=== PATIENT | female | born 1995 | race African-American/Black ===

== ENCOUNTER 2022-02-28 15:11 | Emergency (ER) | payer OTHER, SELFPAY ==
--- NOTE | ~2022-02-28 | XR_ITS ---
EXAMINATION: XR CHEST CLINICAL INFORMATION: Covid positive COMPARISON: None TECHNIQUE: Frontal view of the chest was obtained. FINDINGS: No significant abnormality is noted involving the heart, lungs, mediastinum, bony thorax or soft tissues. XR/XR chest 1V IMPRESSION: Unremarkable examination.
[2022-02-28 16:01] VITALS: BP 115/73; PULSE 130; RESP 18; TEMP 37.7; O2SAT 98; BMI 32.1
[2022-02-28 16:14] LABS: MANUAL DIFF FLAG NO
[2022-02-28 16:16] LABS: Basophils Percent Auto 0.2 % (0-2); Eosinophils Absolute Auto 0.1 X10*3/uL (0.0-0.4); Hemoglobin 13.9 g/dl (12.0-16.0); Imm Gran Abs Auto 0.02 X10*3/uL (0.00-0.03); Imm Gran Pct Auto 0.3 % (0.0-0.4); Lymphocytes Absolute Auto 1.6 X10*3/uL (1.2-4.9); Lymphocytes Percent Auto 27.8 % (20-40); Mean Corpuscular HGB Conc 33.1 g/dl (31.0-35.0); Mean Corpuscular Hemoglobin 30.2 pg (27.0-33.0); Mean Corpuscular Volume 91.1 fL (80.0-98.0); Mean Platelet Volume 10.8 fL (9.4-12.3); Monocytes Percent Auto 17.7 % (2-11); Neutrophils Absolute Auto 3.1 x10*3/uL (2.0-8.3); Platelet Count 299 X10*3/uL (160-400); Red Blood Count 4.61 X10*6/uL (4.20-5.50); Red Cell Distribution Width 12.5 % (11.0-16.0); White Blood Count 5.8 X10*3/uL (4.8-10.8)
[2022-02-28 16:40] LABS: Anion Gap 13 (12-20); Blood Urea Nitrogen 15 mg/dL (9-16); Calcium 9.6 mg/dL (8.4-10.2); Carbon Dioxide 26 mmol/L (22-29); Chloride 102 mmol/L (96-108); Creatinine Clr Calc Pharmacy 110.2; Estimated Glomerular Filt Rate > 60; Glucose Random 88 mg/dL (60-115); Potassium 4.4 mmol/L (3.3-5.1); Sodium 137 mmol/L (135-145)
--- NOTE | 2022-02-28 20:24 | ED.GENADULT ---
HPI - General Adult General Chief complaint: General Medical Stated complaint: weakness Time Seen by Provider: 02/28/22 20:24 Source: patient Mode of arrival: ambulatory Limitations: no limitations History of Present Illness HPI narrative: Patient already been vaccinated against COVID has not received a booster dose started having upper respiratory symptoms since 02/13 tested positive for COVID on 02/14 retested on 02/22 and she was negative for last 3 4 days patient been having fever cough learning nose body aches again. No chest pain mostly she has a dry cough no urinary symptoms other family member also sick Related Data Previous Rx's Medication Instructions Recorded benzonatate 200 mg capsule 200 mg PO TID PRN #30 cap 02/28/22 Allergies Allergy/AdvReac Type Severity Reaction Status Date / Time Penicillins [PCN] Allergy Unknown Unknown Verified 02/28/22 16:00 Review of Systems Review of Systems: Yes all other systems are reviewed and are negative [facility] Social History Social History Advance Directives: No Advance Directives Information Provided: No Patient : No Physical Exam ED Vital Signs: Vital Signs - 24 hr 02/28/22 16:01 02/28/22 21:06 Temperature 100 F 99.6 F Pulse Rate 130 H 120 H Respiratory Rate 18 20 Blood Pressure 115/73 113/81 Pulse Oximetry 98 97 BMI result Body Mass Index 32.1 Appearance: Alert. Oriented X3. No acute distress. Eyes: No pallor/icterus ENT: Pharynx normal. Oral Mucosa moist Neck: Normal inspection. Neck supple. CVS: Normal heart rate and rhythm. Pulses normal. Respiratory: No respiratory distress. Equal air entry bilateral, no wheezing/rales/rhonchi Abdomen: Soft and nontender. Bowel sounds are present, no mass palpable, no CVA tenderness Skin: Skin warm and dry. Normal skin color. Normal skin turgor. Extremities: No lower extremity edema. No calf tenderness Neuro: Oriented X 3. Medical Decision Making Lab Data Lab results reviewed: Yes I reviewed the patient's lab results. Result diagrams: 02/28/22 16:11 02/28/22 16:11 Labs: Lab Results 02/28/22 02/28/22 02/28/22 Range/Units 16:11 16:11 20:54 WBC 5.8 (4.8-10.8) X10*3/uL RBC 4.61 (4.20-5.50) X10*6/uL Hgb 13.9 (12.0-16.0) g/dl Hct 42.0 (37.0-47.0) % MCV 91.1 (80.0-98.0) fL MCH 30.2 (27.0-33.0) pg MCHC 33.1 (31.0-35.0) g/dl RDW 12.5 (11.0-16.0) % Plt Count 299 (160-400) X10*3/uL MPV 10.8 (9.4-12.3) fL Immature Gran % (Auto) 0.3 (0.0-0.4) % Neut % (Auto) 53.0 (45-73) % Lymph % (Auto) 27.8 (20-40) % Mcnairy % (Auto) 17.7 H (2-11) % Eos % (Auto) 1.0 (0-4) % Baso % (Auto) 0.2 (0-2) % Lymph # (Auto) 1.6 (1.2-4.9) X10*3/uL Mcnairy # (Auto) 1.0 (0.1-1.2) X10*3/uL Eos # (Auto) 0.1 (0.0-0.4) X10*3/uL Baso # (Auto) 0.0 (0.0-0.2) X10*3/uL Abs Immat Gran (auto) 0.02 (0.00-0.03) X10*3/uL Absolute Neuts (auto) 3.1 (2.0-8.3) x10*3/uL Absolute Nucleated RBC 0.000 (0.0-0.012) X10*3/uL Nucleated RBC % (auto) 0.0 (0.0-0.2) /100WBC Sodium 137 (135-145) mmol/L Potassium 4.4 (3.3-5.1) mmol/L Chloride 102 (96-108) mmol/L Carbon Dioxide 26 (22-29) mmol/L Anion Gap 13 (12-20) BUN 15 (9-16) mg/dL Creatinine 1.01 (0.5-1.4) mg/dL Estim Creat Clear Calc 110.2 Estimated GFR > 60 Random Glucose 88 (60-115) mg/dL Calcium 9.6 (8.4-10.2) mg/dL Urine Color Urine Appearance Urine pH (5.0-8.0) Ur Specific [place] (1.005-1.025) Urine Protein (NEG-TRACE) MG/DL Urine Glucose (UA) (NEG) MG/DL Urine Ketones (NEG) MG/DL Urine Blood (NEG) Urine Nitrite (NEG) Ur Leukocyte Esterase (NEG) COVID-19 (BARBARA) (Negative) COVID-19 Clin Com Influenza Type A (DEEPA) Positive A (Negative) Influenza Type B (DEEPA) Negative (Negative) Influenza A & B Note See Note 02/28/22 02/28/22 Range/Units 20:54 20:54 WBC (4.8-10.8) X10*3/uL RBC (4.20-5.50) X10*6/uL Hgb (12.0-16.0) g/dl Hct (37.0-47.0) % MCV (80.0-98.0) fL MCH (27.0-33.0) pg MCHC (31.0-35.0) g/dl RDW (11.0-16.0) % Plt Count (160-400) X10*3/uL MPV (9.4-12.3) fL Immature Gran % (Auto) (0.0-0.4) % Neut % (Auto) (45-73) % Lymph % (Auto) (20-40) % Mcnairy % (Auto) (2-11) % Eos % (Auto) (0-4) % Baso % (Auto) (0-2) % Lymph # (Auto) (1.2-4.9) X10*3/uL [place] # (Auto) (0.1-1.2) X10*3/uL Eos # (Auto) (0.0-0.4) X10*3/uL Baso # (Auto) (0.0-0.2) X10*3/uL Abs Immat Gran (auto) (0.00-0.03) X10*3/uL Absolute Neuts (auto) (2.0-8.3) x10*3/uL Absolute Nucleated RBC (0.0-0.012) X10*3/uL Nucleated RBC % (auto) (0.0-0.2) /100WBC Sodium (135-145) mmol/L Potassium (3.3-5.1) mmol/L Chloride (96-108) mmol/L Carbon Dioxide (22-29) mmol/L Anion Gap (12-20) BUN (9-16) mg/dL Creatinine (0.5-1.4) mg/dL Estim Creat Clear Calc Estimated GFR Random Glucose (60-115) mg/dL Calcium (8.4-10.2) mg/dL Urine Color YELLOW Urine Appearance CLEAR Urine pH 6.0 (5.0-8.0) Ur Specific [place] 1.025 (1.005-1.025) Urine Protein NEG (NEG-TRACE) MG/DL Urine Glucose (UA) NEG (NEG) MG/DL Urine Ketones NEG (NEG) MG/DL Urine Blood NEG (NEG) Urine Nitrite NEG (NEG) Ur Leukocyte Esterase NEG (NEG) COVID-19 (BARBARA) Negative (Negative) COVID-19 Clin Com See Note Influenza Type A (DEEPA) (Negative) Influenza Type B (DEEPA) (Negative) Influenza A & B Note Discharge Plan Discharge Clinical Impression: Influenza A Patient Disposition: Home, Self-Care Instructions: Influenza (ED) Additional Instructions: Drink plenty of fluids Tylenol for fever Tessalon for cough Prescriptions: New benzonatate 200 mg capsule 200 mg PO TID PRN (Reason: cough) Qty: 30 0RF Stand Alone Forms: Work/School Release Interventions: ED Discharge Assessment Last Done: 02/28/22 22:08 Discharge Date/Time: 02/28/22 22:09
[2022-02-28 21:06] VITALS: BP 113/81; PULSE 120; RESP 20; TEMP 37.6; O2SAT 97
[2022-02-28 21:27] LABS: COVID-19 Test Negative (Negative)
[2022-02-28 21:29] LABS: IDNOW Serial# 55D5AD1C; Influenza A Positive (Negative); Influenza B2 Negative (Negative)
[2022-02-28 21:41] LABS: Appearance Urine CLEAR; Color Urine YELLOW; Glucose Urine UA NEG (NEG); Leukocyte Esterase Urine NEG (NEG); Nitrite Urine NEG (NEG); Specific Gravity - Urine 1.025 (1.005-1.025); Urine Blood NEG (NEG); Urine Ketones NEG (NEG); Urine Protein NEG (NEG-TRACE)
== END 2022-02-28 22:09 | disposition home or self-care (01) ==
PROVIDERS: Emergency Provider Internal Medicine
DX: J10.1 Influenza due to other identified influenza virus with other respiratory manifestations (principal); Z20.822 Contact with and (suspected) exposure to COVID-19
CPT/HCPCS: 36415; 71045; 80048; 81003; 85025; 87502; 87635; 99283; 99284